=== PATIENT | female | born 1945 | race Caucasian/White ===

== ENCOUNTER 2021-07-25 12:20 | Outpatient (REF) | payer MEDICARE, OTHER, SELFPAY ==
--- NOTE | ~2021-07-25 | MM_ITS ---
EXAMINATION: MM SCREENING DIGITAL BREAST TOMOSYNTHESIS, BILATERAL CLINICAL INFORMATION: Screening. Asymptomatic. The lifetime risk of breast cancer based on the Tyrer-Cuzick Model is 22%. COMPARISON: Mammography: 07/19/2020, prior studies dating back to 12/26/2012 TECHNIQUE: Digital breast tomosynthesis is performed in both the craniocaudal and mediolateral oblique views along with computer-aided detection (CAD). Synthesized 2D images are generated from the tomosynthesis. Additional left MLO view is provided. FINDINGS: There are scattered areas of fibroglandular density (ACR BI-RADS breast composition Category b). There are scattered parenchymal densities no significant mass or architectural abnormality. No abnormal calcifications. There is a dermal lesion overlying the posterior inferior right breast. The axilla are unremarkable. MM/MM tomosynthesis screening BI IMPRESSION: No significant changes prior exams. ASSESSMENT: BI-RADS 2: Benign RECOMMENDATION: Routine annual mammography screening. This patient's information was entered into a reminder system with a target due date for their next mammogram.
== END 2021-07-25 12:21 | disposition home or self-care (01) ==
LOC: HO.MAMMO 12:20
PROVIDERS: PCP Internal Medicine; Visit Provider Internal Medicine
DX: Z12.31 Encounter for screening mammogram for malignant neoplasm of breast (principal)
CPT/HCPCS: 77063; 77067

== ENCOUNTER 2021-08-23 11:50 | Outpatient (REF) | payer MEDICARE, OTHER, SELFPAY ==
--- NOTE | ~2021-08-23 | MM_ITS ---
EXAMINATION: BONE DENSITOMETRY CLINICAL INDICATION: Menopause. COMPARISON: Previous BD dated 04/01/2019 and baseline BD dated 01/19/2015. TECHNIQUE: Using a Nearbox DXA System (software version: 13.1) manufactured by [employer] dual-energy x-ray absorptiometry was performed of the lumbar spine and left hip. The images are of good technical quality. Summary results are attached. FINDINGS: AP SPINE L1-L4: There are multilevel degenerative changes which may cause overestimation of the lumbar bone mineral density. Current: BMD 1.607 g/cm2, Z-score 4.6, T-score 3.6, normal, 0.2% increase from previous, 5.2% increase from baseline (<5% change is not significant). Prior: BMD 1.604 g/cm2. Baseline: BMD 1.527 g/cm2. LEFT FEMUR, NECK: Current: BMD 0.784 g/cm2, Z-score -0.3, T-score -1.8, osteopenia. Prior: BMD 0.781 g/cm2. Baseline: BMD 0.825 g/cm2. LEFT FEMUR, TOTAL: Current: BMD 0.965 g/cm2, Z-score 1.0, T-score -0.3, normal, 3.4% increase from previous, 4.9% increase from baseline (<5% change is not significant). Prior: BMD 0.933 g/cm2. Baseline: BMD 0.920 g/cm2. IDENTIFIED RISK FACTORS: Osteoporosis, history of fracture (adult), menopause. HISTORY OF FRACTURE: Wrist. MEDICATIONS: Vitamin D. MM/XR DEXA axial skeleton IMPRESSION: 1. DIAGNOSIS: Osteopenia based on the lowest T-score value of -1.8 in the femoral neck applying World Health Organization criteria. 2. 10-YEAR FRACTURE RISK PREDICTION, FRAX: Major osteoporotic fracture (clinical spine, forearm, hip or shoulder) 18.8%. Hip fracture 4.3%. 3. Treatment Recommendations: NOF guidelines recommend consideration for treatment in postmenopausal women and men age 50 and older presenting with the following: -A hip or vertebral (clinical or morphometric) fracture. -T-score less than or equal to -2.5 at the femoral neck or spine after appropriate evaluation to exclude secondary causes. -Low bone mass at the hip or spine and a 10-year fracture probability by FRAX of greater than or equal to 3% for hip fracture or greater than or equal to 20% for major osteoporotic fracture based on the [place] adapted WHO algorithm. 4. Other Recommendations: All treatment decisions require clinical judgment and consideration of individual patient factors, including patient preferences, comorbidities, previous drug use, risk factors not captured in the FRAX model (e.g. frailty, falls, vitamin D deficiency, increased bone turnover, interval significant decline in bone density) and possible under or overestimation of fracture risk by FRAX. Additional medical evaluation for secondary cause of low bone mineral density may be appropriate. FUTURE SCAN RECOMMENDATION: People with diagnosed cases of osteoporosis or at high risk for fracture should have regular bone mineral density tests. For patients eligible for Medicare, routine testing is allowed once every 2 years. The testing frequency can be increased to one year for patients who have rapidly progressing disease, those who are receiving or discontinuing medical therapy to restore bone mass, or have additional risk factors.
== END 2021-08-23 11:51 | disposition home or self-care (01) ==
LOC: HO.MAMMO 11:50
PROVIDERS: Visit Provider Internal Medicine
DX: Z13.820 Encounter for screening for osteoporosis (principal); M85.80 Other specified disorders of bone density and structure, unspecified site; Z78.0 Asymptomatic menopausal state; Z87.81 Personal history of (healed) traumatic fracture
CPT/HCPCS: 77080

== ENCOUNTER 2022-07-27 11:41 | Outpatient (REF) | payer MEDICARE, OTHER, SELFPAY ==
--- NOTE | ~2022-07-27 | MM_ITS ---
EXAMINATION: MM SCREENING DIGITAL BREAST TOMOSYNTHESIS, BILATERAL CLINICAL INFORMATION: Screening. Asymptomatic. The lifetime risk of breast cancer based on the Tyrer-Cuzick Model is 20%. COMPARISON: Mammography: 07/25/2021, 07/19/2020, 04/01/2019 TECHNIQUE: Digital breast tomosynthesis is performed in both the craniocaudal and mediolateral oblique views along with computer-aided detection (CAD). Synthesized 2D images are generated from the tomosynthesis. FINDINGS: There are scattered areas of fibroglandular density (ACR BI-RADS breast composition Category b). There are no significant masses, abnormal calcifications, or other abnormalities. No developing density. No architectural abnormality. Parenchymal pattern is similar to prior studies. The axilla and skin contours are unremarkable. No significant changes. MM/MM tomosynthesis screening BI IMPRESSION: No mammographic evidence of malignancy. ASSESSMENT: BI-RADS 1: Negative RECOMMENDATION: Routine annual mammography screening. This patient's information was entered into a reminder system with a target due date for their next mammogram.
== END 2022-07-27 11:42 | disposition home or self-care (01) ==
LOC: HO.MAMMO 11:41
PROVIDERS: Visit Provider Internal Medicine
DX: Z12.31 Encounter for screening mammogram for malignant neoplasm of breast (principal)
CPT/HCPCS: 77063; 77067

== ENCOUNTER 2023-08-02 11:48 | Outpatient (REF) | payer MEDICARE, SELFPAY ==
--- NOTE | ~2023-08-02 | MM_ITS ---
EXAMINATION: MM SCREENING DIGITAL BREAST TOMOSYNTHESIS, BILATERAL CLINICAL INFORMATION: Screening. Asymptomatic. COMPARISON: Mammography: 07/27/2022, 07/25/2021, 07/19/2020, 04/01/2019 TECHNIQUE: Digital breast tomosynthesis is performed in both the craniocaudal and mediolateral oblique views along with computer-aided detection (CAD). Synthesized 2D images are generated from the tomosynthesis. FINDINGS: The breasts are almost entirely fatty (ACR BI-RADS breast composition Category a). There are no suspicious masses, suspicious grouped calcifications, or areas of architectural distortion. The parenchymal pattern is stable from prior exams. There are mild bilateral vascular calcifications. There is likely mild duct ectasia in both retroareolar regions. MM/MM tomosynthesis screening BI IMPRESSION: No mammographic evidence of malignancy. Stable benign findings. ASSESSMENT: BI-RADS BI-RADS 2 - Benign Findings RECOMMENDATION: Routine annual mammography screening. 1 year F/U This examination should not preclude the clinical evaluation of a suspicious palpable abnormality. This patient's information was entered into a reminder system with a target due date for their next mammogram.
== END 2023-08-02 11:49 | disposition home or self-care (01) ==
LOC: HO.MAMMO 11:48
PROVIDERS: PCP Internal Medicine; Visit Provider Internal Medicine
DX: Z12.31 Encounter for screening mammogram for malignant neoplasm of breast (principal)
CPT/HCPCS: 77063; 77067

== ENCOUNTER → 2023-08-02 12:00 | Outpatient (BNV) | payer MEDICARE, SELFPAY | PROVIDERS: PCP Internal Medicine; Visit Provider Radiology Diagnostic Radiology | DX: Z12.31 Encounter for screening mammogram for malignant neoplasm of breast (principal) | CPT/HCPCS: 77063; 77067 ==

== ENCOUNTER 2024-08-08 11:48 | Outpatient (REF) | payer MEDICARE, SELFPAY ==
--- NOTE | ~2024-08-08 | MM_ITS ---
EXAMINATION: MM SCREENING DIGITAL BREAST TOMOSYNTHESIS, BILATERAL CLINICAL INFORMATION: Screening. Asymptomatic. COMPARISON: Mammography: Comparison is made with available priors TECHNIQUE: Digital breast mammography with tomosynthesis is performed in both the craniocaudal and mediolateral oblique views along with computer-aided detection (CAD). FINDINGS: There are scattered areas of fibroglandular density (ACR BI-RADS breast composition Category b). There are no significant masses, abnormal calcifications, or other abnormalities. MM/MM tomosynthesis screening BI IMPRESSION: No mammographic evidence of malignancy. ASSESSMENT: BI-RADS BI-RADS 1 - Negative RECOMMENDATION: Routine annual mammography screening. 1 year F/U This examination should not preclude the clinical evaluation of a suspicious palpable abnormality. This patient's information was entered into a reminder system with a target due date for their next mammogram. Electronically signed by: Deb Stroud DO 08/21/2024 08:17 PM EDT
== END 2024-08-08 11:49 | disposition home or self-care (01) ==
LOC: HO.MAMMO 11:48
PROVIDERS: PCP Internal Medicine; Visit Provider Internal Medicine
DX: Z12.31 Encounter for screening mammogram for malignant neoplasm of breast (principal)
CPT/HCPCS: 77063; 77067

== ENCOUNTER → 2024-08-08 12:00 | Outpatient (BNV) | payer MEDICARE, SELFPAY | PROVIDERS: PCP Internal Medicine; Visit Provider Internal Medicine | DX: Z12.31 Encounter for screening mammogram for malignant neoplasm of breast (principal) | CPT/HCPCS: 77063; 77067 ==

== ENCOUNTER 2025-08-10 11:55 | Outpatient (REF) | payer MEDICARE, SELFPAY ==
--- NOTE | ~2025-08-10 | MM_ITS ---
EXAMINATION: MM SCREENING DIGITAL BREAST TOMOSYNTHESIS, BILATERAL CLINICAL INFORMATION: Screening. Asymptomatic. COMPARISON: Comparison made to multiple prior, most recent August 08, 2024, and most remote July 19, 2020. TECHNIQUE: Digital breast tomosynthesis is performed in mediolateral oblique and craniocaudal views along with computer-aided detection (CAD). Synthesized 2D images are generated from the tomosynthesis. FINDINGS: BREAST COMPOSITION: There are scattered areas of fibroglandular density (ACR BI-RADS breast composition Category b). BILATERAL BREASTS: No significant masses, suspicious calcifications or other abnormalities are seen in either breast. MM/MM tomosynthesis screening BI IMPRESSION: BILATERAL BREASTS: Negative, no mammographic evidence of malignancy. Normal interval follow-up is recommended in 12 months. ASSESSMENT: BI-RADS 1 - Negative RECOMMENDATION: Routine annual mammography screening. FOLLOW-UP: 1 year F/U This examination should not preclude the clinical evaluation of a suspicious palpable abnormality. This patient's information was entered into a reminder system with a target due date for their next mammogram. Electronically signed by: Dao Chavarria MD 08/11/2025 05:40 PM EDT
--- OUTSIDE RECORDS SUMMARY | 2025-08-10 16:39 | XMS_ITS | Patient Health Record ---
Author Organization [facility] Address [address] [place] [address] Care Team Providers Care Spa Director Name Role Phone Kyrie Treviño Unavailable [phone] Reason For Referral No Information Plan Of Treatment No Information
--- OUTSIDE RECORDS SUMMARY | 2025-08-10 16:39 | XMS_ITS | Patient Health Record ---
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 Role Phone Liz De Santiago MD Primary Care Provider UnavailCathy Cardona Unavailable [phone] [place] Unavailable [phone] Allergies Allergen (clinical drug ingredient) Drug/Non Drug Allergy documented on EMR Reaction Allergy Type Onset Date Status codeine Codeine hives Drug Allergy Active Reason For Referral No Information Medications Medication SIG (Take, Route, Frequency, Duration) Notes Start Date End Date Status Hair Skin Nails Acti ve Diovan 160 MG Oral; Duration: 30 Not-Taking Baby Aspirin Not-Skyler ing Krill Oil Active Folic Acid 400 MCG 1 tablet Orally Once a day 04/06/2015 Not-Taking hydroCHLOROthiazide 25 MG Orally Active Fish Oil Not-Taking Ocuvite Active Ibuprofen Not-Taking Losartan Potassium 50 MG Orally Once a day Active Vitamin D3 2000 UNIT Orally 04/06/2015 Not-Taking Tylenol Arthritis Pain Active oxyBUTYnin Active Vitamin D Active Venlafaxine HCl ER 75 MG Oral; Duration: 30 Active Gabapentin Active Colcrys 0.6 MG 1 tablet Orally once a day; Duration: 10 days Active Immunizations Vaccine Route Administration Date Status Comme nts Influenza Unknown 07/28/2024 Administered Social History Tobacco Use: Social History Observation Description Date Details (start date - stop date) Never Smoker NA - NA Tobacco use other than smoking: Question Answer Notes Are you an other tobacco user? No Tobacco Control (Standard) Question Answer Notes Tobacco use: Nonsmoker Additional Findings: Tobacco non-user Current no nsmoker AUDIT-C (Standard) Question Answer Notes Did you have a drink containing alcohol in the p ast year? 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) Active confirmed Vital Signs Heart Rate 96 /min 12/16/2024 Blood pressure diastolic 75 mm Hg 06/23/2025 Height 5 ft 3 in in 06/23/2025 Blood pressure systolic 132 mm Hg 06/23/2025 Weight 199 lbs 06/23/2025 BMI 35.25 kg/m2 06/23/2025 Procedures Procedure Date Ordered Date Performed Result Body Sit e 57115-[id number] NAIL, 6 OR MORE 12/16/2024 N/A Encounters Encounter [facility] Date [facility] [address] 09/16/2024 [place] Tinea unguium B35.1 ; Pain in right toe(s) M79.674 ; Pain in left toe(s) M79.675 ; Pain in left foot M79.672 ; Other hammer toe(s) (acquired), left foot M20.42 ; Other hammer toe(s) (acquired), right foot M20.41 ; Metatarsalgia, left foot M77.42 ; Tailor's bunion of left foot 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 and Pain in right foot M79.[address] [facility] [address] 12/16/2024 Cathy Renae Pain in left foot M79.672 ; Pain in left ankle and joints of left foot M25.572 ; Bursitis of left foot M77.52 ; Tailor's bunion of left foot M21.622 ; Pain in right toe(s) M79.674 ; Onychomycosis B35.1 and Pain in left toe(s) M79.675 [place] [id number] [address] 03/24/2025 Cathy Renae Tailor's bunion of left foot M21.622 ; Onychomycosis B35.1 ; Pain in right toe(s) M79.674 and Pain in left toe(s) M79.[address] [address] 06/23/2025 Cathy Garcia's bunion of left foot M21.622 ; Onychomycosis B35.1 ; Pain in right toe(s) M79.674 and Pain in left toe(s) M79.[address] [address] 03/24/2025 Cathy Renae Assessments Encounter Date Diagnosis (ICD Code) Assessment Notes Treatment Notes Treatment Clinical Notes Section Notes 09/16/2024 Tinea unguium (ICD-10 - B35.1) 09/16/2024 Pain in right toe(s) (ICD-10 - M79.674) 12/16/2024 Pain in left foot (ICD-10 - M79.672) 03/24/2025 Onychomycosis (ICD-10 - B35.1) 03/24/2025 Tailor's bunion of left foot (ICD-10 - M21.622) 06/23/2025 Onychomycosis (ICD-10 - B35.1) 06/23/2025 Tailor's bunion of left foot (ICD-10 - M21.622) 03/24/2025 Pain in right toe(s) (ICD-10 - M79.674) 12/16/2024 Pain in left ankle and joints of left foot (ICD-10 - M25.572) 06/23/2025 Pain in right toe(s) (ICD-10 - M79.674) 09/16/2024 Pain in left toe(s) (ICD-10 - M79.675) 09/16/2024 Pain in left foot (ICD-10 - M79.672) 12/16/2024 Bursitis of left foot (ICD-10 - M77.52) 03/24/2025 Pain in left toe(s) (ICD-10 - M79.675) 06/23/2025 Pain in left toe(s) (ICD-10 - M79.675) 12/16/2024 Tailor's bunion of left foot (ICD-10 - M21.622) 09/16/2024 Other hammer toe(s) (acquired), left foot (ICD-10 - M20.42) 09/16/2024 Other hammer toe(s) (acquired), right foot (ICD-10 - M20.41) 12/16/2024 Pain in right toe(s) (ICD-10 - M79.674) 12/16/2024 Onychomycosis (ICD-10 - B35.1) 09/16/2024 Metatarsalgia, left foot (ICD-10 - M77.42) 09/16/2024 Tailor's bunion of left foot (ICD-10 - M21.622) 12/16/2024 Pain in left toe(s) (ICD-10 - M79.675) 09/16/2024 Pain in right foot (ICD-10 - M79.671) Plan Of Treatment Pending Test Test Name Order Date X ray : Ankle, left 3V 09/21/2023 X ray : Foot, left 2V 04/06/2015 X ray : Foot, left 2V 05/04/2015 X ray : Foot, left 2V 05/14/2015 X ray : Foot, left 2V 05/25/2015 X ray : Foot, left 2V 06/29/2015 *Uric Acid, Serum 09/21/2023 *Sedimentation Rate-Westergren X ray : Foot, left 3V 05/14/2018 X ray : Foot, left 3V 06/13/2019 [id number] NAIL, 6 OR MORE 03/19/2018 [id number] NAIL, 6 OR MORE 12/16/2024 [id number] Destruction, 1-14 03/19/2018 [id number] Destruction, 1-14 02/12/2018 Next Appt Details Provider Name:Cathy vasquez, 09/22/2025 01:00:00 PM, [address], [address], [place], [address], Insurance Providers Payer Name Payer Address Payer Phone Subscriber Number Group Number Insured Name Patient Relationship to Insured Coverage Start Date Coverage End Date Medicare [employer] [address] [facility] [place] [address] [id number] Cornelia Betts Self - patient is the insured Medical (General) History Medical History History ICD Code osteoarthritis Back,Hip,and Knee pain Gall bladder problems Hypertension Measles Mumps Chicken pox Joint implants/screws Transfusions Surgical History Surgery Date(Month/Year) back disc surgery 1972 gall bladder 1975 right knee replacement 1995 left knee replacement 2005 hammertoe repair left 5th 04/29/2015 neck, injection 05/2023 Hospitalization History Reason Date(Month/Year) fell, tripped over a chair, broke wrist 09/2023 [facility] [place] left 5th toe 04/29/15
== END 2025-08-10 11:56 | disposition home or self-care (01) ==
LOC: HO.MAMMO 11:55
PROVIDERS: PCP Internal Medicine; Visit Provider Internal Medicine
DX: Z12.31 Encounter for screening mammogram for malignant neoplasm of breast (principal)
CPT/HCPCS: 77063; 77067

== ENCOUNTER → 2025-08-10 12:00 | Outpatient (BNV) | payer MEDICARE, SELFPAY | PROVIDERS: PCP Internal Medicine; Visit Provider Radiology Body Imaging | DX: Z12.31 Encounter for screening mammogram for malignant neoplasm of breast (principal) | CPT/HCPCS: 77063; 77067 ==